=== PATIENT | male | born 1990 ===

== ENCOUNTER 2018-07-15 03:23 | Emergency (ER) | payer SELFPAY ==
[2018-07-15 03:53] VITALS: BP 155/97; PULSE 95; RESP 17; TEMP 97; O2SAT 97
--- NOTE | 2018-07-15 04:24 | ED PDOC ---
HPI: Psych/Substance Abuse Time Seen by Provider: 07/15/18 03:59 Chief Complaint (Nursing): Alcohol Ingestion Chief Complaint (Provider): Etoh USE History Per: Patient History/Exam Limitations: no limitations (Pt p) Additional Complaint(s): (Pt presents after being brought in by EMS for alcohol intoxication. During examination, pt is speaking in lucid and clear terms, his gaze is normal and unlabored, his gait is strong and straight.) Past Medical History Reviewed: Historical Data, Nursing Documentation, Vital Signs Vital Signs: Last Vital Signs Temp 97.0 F L 07/15/18 03:50 Pulse 95 H 07/15/18 03:50 Resp 17 07/15/18 03:50 BP 155/97 H 07/15/18 03:50 Pulse Ox 97 07/15/18 03:50 - Family History Family History: States: Unknown Family Hx - Home Medications Home Medications: Ambulatory Orders Medication Instructions Recorded Cephalexin [cephalexin] 500 mg PO QID #40 cap 07/15/18 - Allergies Allergies/Adverse Reactions: Allergies Allergy/AdvReac Type Severity Reaction Status Date / Time No Known Allergies Allergy Verified 07/15/18 03:53 Review of Systems ROS Statement: Except As Marked, All Systems Reviewed And Found Negative Skin: Positive for: Other (mild abrasions on pt's right posterior hand and face) Physical Exam - Reviewed Nursing Documentation Reviewed: Yes Vital Signs Reviewed: Yes - Physical Exam Head Exam: Negative for: ATRAUMATIC, NORMAL INSPECTION Skin: Negative for: Normal Color (several mild small abrasions to the face and dorsal left hand; bleeding is under control and there is no sign of infection) Eye Exam: Positive for: Normal appearance, PERRL. Negative for: Nystagmus, Periorbital swelling, Periorbital tenderness Neck: Positive for: Normal. Negative for: Decreased ROM Cardiovascular/Chest: Positive for: Regular Rate, Rhythm Respiratory: Positive for: Normal Breath Sounds Pulses-Carotid (L): 2+ Pulses-Carotid (R): 2+ Pulses-Radial (L): 2+ Pulses-Radial (R): 2+ - ECG O2 Sat by Pulse Oximetry: 97 Medical Decision Making Medical Decision Making: I: Alcohol Consumption P: test for sobriety. On evaluation pt is speaking in lucid and clear terms, his gaze is normal and unlabored, his gait is strong and straight. Pt refuses to have his abrasions cleaned or tended to indicating instead that he "is from [place] and can take care of it himself." Abx will be provided to the patient on discharge Pt is requesting discharge Pt is stable Pt is safe for discharge pending acceptable vital signs Disposition - Clinical Impression Clinical Impression: Alcohol use - Patient ED Disposition Is Patient to be Admitted: No Counseled Patient/Family Regarding: Rx Given - Disposition Disposition: Routine/Home Disposition Time: 04:29 Condition: STABLE Prescriptions: Cephalexin [cephalexin] 500 mg PO QID #40 cap Forms: [employer] (Dominican)
== END 2018-07-15 04:54 | disposition home or self-care (01) ==
LOC: H.ER 03:23
DX: F10.10 Alcohol abuse, uncomplicated (principal)